=== PATIENT | male | born 1965 | race Caucasian/White ===

== ENCOUNTER 2018-04-17 11:39 | Emergency (ER) | payer OTHER ==
[2018-04-17] MEDS ORDERED: IBUPROFEN 600 MG TABLET PO ONE (12:08)
[2018-04-17] MEDS ORDERED: ACETAMINOPHEN 325 MG TABLET PO ONE (12:08)
--- NOTE | 2018-04-17 12:46 | RADIOLOGY REPORT (SQ) ---
EXAM DESCRIPTION: FOOT RIGHT COMPLETE COMPLETED DATE/TIME: 04/17/2018 12:23 pm REASON FOR STUDY: stingray injury COMPARISON: None. NUMBER OF VIEWS: Three views of the right foot. LIMITATIONS: None. FINDINGS: There is no acute or significant bone, joint or soft tissue abnormality. OTHER: No other significant finding. IMPRESSION: NORMAL STUDY. TECHNICAL DOCUMENTATION: JOB ID: [id number] Reading location - IP/workstation name: [employer] [facility]
--- NOTE | 2018-04-17 13:09 | ER Document Report ---
ED General - General Chief Complaint: Foot Injury Stated Complaint: STUNG BY STINGRAY Time Seen by Provider: 04/17/18 12:08 TRAVEL OUTSIDE OF THE [place] IN LAST 30 DAYS: No - HPI Patient complains to provider of: Right foot injury Notes: Patient has a right foot injury due to a stingray. Patient is concerned that the bar may be still in his foot. Patient otherwise denies any past medical history denies any other injuries denies any fevers chills nausea vomiting diarrhea. Patient has had a small wound to the lateral portion of the right foot along the base of the fifth - Related Data Allergies/Adverse Reactions: Penicillins Adverse Reaction (Verified 04/17/18 11:53) Difficulty breathing Past Medical History - Social History Smoking Status: Current Every Day Smoker Chew tobacco use (# tins/day): No Frequency of alcohol use: Occasional Drug Abuse: None Family History: Reviewed & Not Pertinent Patient has suicidal ideation: No Patient has homicidal ideation: No Renal/ Medical History: Denies: Hx Peritoneal Dialysis Past Surgical History: Reports: Hx Orthopedic Surgery - ACL (right), Hx Tonsillectomy Review of Systems - Review of Systems Constitutional: No symptoms reported EENT: No symptoms reported Cardiovascular: No symptoms reported Respiratory: No symptoms reported Gastrointestinal: No symptoms reported Genitourinary: No symptoms reported Male Genitourinary: No symptoms reported Musculoskeletal: Other - Foot injury Skin: No symptoms reported Hematologic/Lymphatic: No symptoms reported Neurological/Psychological: No symptoms reported -: Yes All other systems reviewed and negative Physical Exam - Vital signs Vitals: Temp Pulse Resp BP Pulse Ox 97.6 F 62 18 124/78 99 04/17/18 13:28 04/17/18 13:28 04/17/18 13:28 04/17/18 13:28 04/17/18 13:28 Interpretation: Normal - General General appearance: Appears well, Alert - HEENT Head: Normocephalic, Atraumatic Eyes: Normal Pupils: PERRL - Respiratory Respiratory status: No respiratory distress Chest status: Nontender Breath sounds: Normal Chest palpation: Normal - Cardiovascular Rhythm: Regular Heart sounds: Normal auscultation Murmur: No - Abdominal Inspection: Normal Distension: No distension Bowel sounds: Normal Tenderness: Nontender Organomegaly: No organomegaly - Back Back: Normal, Nontender - Extremities General upper extremity: Normal inspection, Nontender, Normal color, Normal ROM , Normal temperature General lower extremity: Nontender, Normal color, Normal ROM, Normal temperature , Normal weight bearing. No: Normal inspection - Wound to the lateral portion of the fifth digit of the right foot, Claudia's sign - Neurological Neuro grossly intact: Yes Cognition: Normal Orientation: AAOx4 [place] Com[place] Scale Eye Opening: Spontaneous [place] Com[place] Scale Verbal: Oriented Hobbs Coma Scale Motor: Obeys Commands Hobbs Coma Scale Total: 15 Speech: Normal Motor strength normal: LUE, RUE, LLE, RLE Sensory: Normal - Psychological Associated symptoms: Normal affect, Normal mood - Skin Skin Temperature: Warm Skin Moisture: Dry Skin Color: Normal Course - Re-evaluation Re-evalutation: 04/17/18 20:32 X-ray confirms no retained foreign body patient is to continue to keep the wound clean with triple antibiotic ointment applied. States no history will be discharged home. Patient refused his Ultram prescription at discharge I did take this and there are this in the shred bin - Vital Signs Vital signs: Temp Pulse Resp BP Pulse Ox 97.6 F 62 18 124/78 99 04/17/18 13:28 04/17/18 13:28 04/17/18 13:28 04/17/18 13:28 04/17/18 13:28 Discharge - Discharge Clinical Impression: Contact with stingray as cause of accidental injury Condition: Good Disposition: HOME, SELF-CARE Instructions: [facility] ([facility]) Additional Instructions: X-ray of the foot does not show any retained bar. Please continue to keep the wound clean and dry may place antibiotic ointment on the wound. For any itching or burning recommend antihistamine such as Zyrtec or Benadryl. Tylenol and Motrin for pain control Ultram for severe pain return to ER symptoms worsen Prescriptions: Ibuprofen [Motrin 600 mg Tablet] 600 mg PO Q8HP PRN #21 tablet PRN Reason: Tramadol HCl [Ultram 50 mg Tablet] 50 mg PO ASDIR PRN #20 tablet PRN Reason: Forms: Return to Work Referrals: KELLIE DELEON MD [ACTIVE STAFF] - Follow up as needed
[2018-04-17 13:35] VITALS: BP 124/78
== END 2018-04-17 13:36 | disposition home or self-care (01) ==
LOC: ER 11:39
DX: T63.511A Toxic effect of contact with stingray, accidental (unintentional), initial encounter (principal); F17.200 Nicotine dependence, unspecified, uncomplicated
CPT/HCPCS: 99283